=== PATIENT | male | born 1965 | race Caucasian/White ===

== ENCOUNTER 2016-11-18 21:13 | Emergency (ER) | payer BC ==
[2016-11-18] MEDS ORDERED: ALPRAZolam 0.5 MG TAB PO STA (23:15)
--- NOTE | 2016-11-18 23:22 | ED ---
Anxiety HPI - General Chief Complaint: Anxiety Stated Complaint: anxiety Time Seen by Provider: 11/18/16 22:45 Source: patient, RN notes reviewed Mode of arrival: ambulatory - History of Present Illness Initial Comments: 51-year-old male presents to the emergency department with a chief complaint of anxiety attack. Patient has been having a for the last week or so. Patient has been resorting to alcohol to help treat this. Patient is a known alcoholic and he has been sober for a few months now. He just has this full body tightening and he feels very tense and irritated. He states it will body hurts and feels very tense. Patient states alcohol tends to make the symptoms better. Family states they just were concerned so weakened coming and all most of the medication and he just did not know what else to turn. The patient at this time denies any complaints and states it feels much like anxiety. The patient states is not currently having any other symptoms. Patient denies any recent fever, chills, shortness of breath, chest pain, back pain, abdominal pain , nausea vomiting, numbness or tingling, dysuria or hematuria, constipation or diarrhea, headaches or visual changes, or any other current symptoms. - Related Data Home Medications: Home Medications Medication Instructions Recorded Confirmed Aspirin 81 mg PO DAILY 06/24/14 11/18/16 Atenolol [Tenormin] 50 mg PO QAM 06/24/14 11/18/16 Hydrochlorothiazide 25 mg PO DAILY 06/24/14 11/18/16 Multivitamin [Men's Multi-Vitamin] 1 tab PO DAILY 06/24/14 11/18/16 Pravastatin Sodium [Pravachol] 10 mg PO DIRECTED 06/24/14 11/18/16 Ubidecarenone [Co Q-10] 200 mg PO DAILY 06/24/14 11/18/16 Previous Rx's Medication Instructions Recorded ALPRAZolam [Xanax] 0.5 mg PO BID PRN #10 tablet 11/18/16 chlordiazePOXIDE HCl [Librium] 25 mg PO DIRECTED #25 capsule 11/18/16 Allergies/Adverse Reactions: Allergies Allergy/AdvReac Type Severity Reaction Status Date / Time No Known Allergies Allergy Verified 11/18/16 21:27 Review of Systems ROS Statement: Those systems with pertinent positive or pertinent negative responses have been documented in the HPI. ROS Other: All systems not noted in ROS Statement are negative. Past Medical History Past Medical History: Hyperlipidemia, Hypertension History of Any Multi-Drug Resistant Organisms: None Reported Past Surgical History: Orthopedic Surgery Additional Past Surgical History / Comment(s): ACL REPAIR RT KNEE Past Anesthesia/Blood Transfusion Reactions: No Reported Reaction Past Psychological History: Anxiety, Depression Smoking Status: Never smoker Past Alcohol Use History: Daily Past Drug Use History: None Reported General Exam Limitations: no limitations General appearance: alert, in no apparent distress, anxious ENT exam: Present: normal exam, mucous membranes moist Neck exam: Present: normal inspection. Absent: tenderness, meningismus, lymphadenopathy Respiratory exam: Present: normal lung sounds bilaterally. Absent: respiratory distress, wheezes, rales, rhonchi, stridor Cardiovascular Exam: Present: regular rate, normal rhythm, normal heart sounds. Absent: systolic murmur, diastolic murmur, rubs, gallop, clicks Neurological exam: Present: alert, oriented X3 Psychiatric exam: Present: normal affect, normal mood Skin exam: Present: warm, dry, intact, normal color. Absent: rash Course Vital Signs 11/18/16 21:22 Temperature 99.1 F Pulse Rate 83 Respiratory 16 Rate Blood Pressure 145/97 O2 Sat by Pulse 96 Oximetry Medical Decision Making - Medical Decision Making 51-year-old male presents to the emergency department with a chief complaint of anxiety. Patient is also an alcoholic. He long discussion about options. We did give them information about rehab facility. We'll give him Librium to help with withdrawal as well as Xanax help patient with his anxiety. We discussed close follow-up with counselor tomorrow. Parameters. The patient does contract for safety and all questions have been answered. They will be discharged. Disposition Clinical Impression: Acute anxiety, Alcohol abuse Disposition: HOME SELF-CARE Condition: Stable Instructions: Generalized Anxiety Disorder (ED) Additional Instructions: Please use medication as discussed. Please follow up with family doctor if symptoms have not improved over the next two days. Please return to the emergency room if your symptoms increase or worsen or for any other concerns. Prescriptions: chlordiazePOXIDE HCl [Librium] 25 mg PO DIRECTED #25 capsule Referrals: Mónica Nava MD [Primary Care Provider] - 1-2 days Time of Disposition: 23:21
[2016-11-19 00:04] VITALS: BP 149/89; PULSE 82; RESP 18; TEMP 98.2
== END 2016-11-19 00:04 | disposition home or self-care (01) ==
LOC: EC 21:13
DX: F41.9 Anxiety disorder, unspecified (principal); F10.10 Alcohol abuse, uncomplicated; E78.5 Hyperlipidemia, unspecified; I10 Essential (primary) hypertension; Z79.82 Long term (current) use of aspirin; Z79.899 Other long term (current) drug therapy
CPT/HCPCS: 99282

== ENCOUNTER 2022-12-07 09:58 | Day surgery (SDC) | payer BC ==
[2022-12-03 14:46] VITALS: BMI 20.7
[~2022-12-07 09:58] MED LIST: LACTATED RINGERS 1,000 ML IV SCH
[2022-12-07 10:26] VITALS: TEMP 97.4
[2022-12-07] MEDS ORDERED: PROPOFOL 10 MG/ML 20 ML VIAL IV ONE (10:39)
--- NOTE | 2022-12-07 10:42 | P.GSHP ---
History of Present Illness H&P Date: 12/07/22 Chief Complaint: Colon cancer screening 57-year-old here today for colonoscopy. Last colonoscopy 9 years ago. Diverticulosis found at that time. No bowel complaints. No family history of colon cancer. Past Medical History Past Medical History: Hyperlipidemia, Hypertension Additional Past Medical History / Comment(s): colon polyps History of Any Multi-Drug Resistant Organisms: None Reported Past Surgical History: Orthopedic Surgery Additional Past Surgical History / Comment(s): ACL REPAIR RT KNEE colonoscopy Past Anesthesia/Blood Transfusion Reactions: No Reported Reaction Smoking Status: Never smoker Medications and Allergies Home Medications Medication Instructions Recorded Confirmed Type Aspirin 81 mg PO DAILY 06/24/14 12/07/22 History Multivitamin [Men's Multi-Vitamin] 1 tab PO DAILY 06/24/14 12/07/22 History Pravastatin Sodium [Pravachol] 10 mg PO Q48H 06/24/14 12/07/22 History Ubidecarenone [Co Q-10] 200 mg PO DAILY 06/24/14 12/07/22 History Cholecalciferol [Vitamin D3] 5,000 unit PO DAILY 11/18/16 12/07/22 History atenoloL 25 mg PO DAILY 11/18/16 12/07/22 History Loratadine 10 mg PO DAILY 12/03/22 12/07/22 History Allergies Allergy/AdvReac Type Severity Reaction Status Date / Time No Known Allergies Allergy Verified 12/07/22 10:22 Surgical - Exam Vital Signs Temp Pulse Resp BP Pulse Ox 97.4 F L 51 L 18 133/64 99 12/07/22 10:20 12/07/22 10:20 12/07/22 10:20 12/07/22 10:20 12/07/22 10:20 Physical exam: General: Well-developed, well-nourished HEENT: Normocephalic, sclerae nonicteric Abdomen: Nontender, nondistended Extremities: No edema Neuro: Alert and oriented Assessment and Plan (1) Colon cancer screening Narrative/Plan: Will proceed with colonoscopy at this time. Current Visit: Yes Status: Acute Code(s): Z12.11 - ENCOUNTER FOR SCREENING FOR MALIGNANT NEOPLASM OF COLON SNOMED Code(s): 201061150
--- NOTE | 2022-12-07 10:56 | P.PCN ---
Date of Procedure: 12/07/22 Procedure(s) Performed: PREOPERATIVE DIAGNOSIS: Colon cancer screening POSTOPERATIVE DIAGNOSIS: Mild diverticulosis PROCEDURE: Colonoscopy ANESTHESIA: MAC SURGEON: Ramiro Porter M.D. SPECIMENS: None ENDOSCOPIC PROCEDURE: The patient was placed on the endoscopy table in the left decubitus position. The Olympus colonoscope was inserted into the anus and passed under direct visualization to the base of the cecum. The appendiceal orifice was visualized. From that point the scope was slowly withdrawn inspecting all surfaces carefully. There were no neoplastic inflammatory or polypoid lesions throughout the cecum, ascending, transverse, descending, sigmoid and rectum. There was mild left-sided diverticulosis noted. Digital rectal examination was normal. The patient was taken to the recovery room in stable condition per anesthesia guidelines. RECOMMENDATIONS: Resume diet. Repeat colonoscopy 10 years.
[2022-12-07 11:02] VITALS: RESP 16
[2022-12-07 11:29] VITALS: BP 132/79; PULSE 62
== END 2022-12-07 11:51 | disposition home or self-care (01) ==
LOC: ORWHC2ENDO 09:58
PROVIDERS: ATTEND Surgery
DX: Z12.11 Encounter for screening for malignant neoplasm of colon (principal); K57.30 Diverticulosis of large intestine without perforation or abscess without bleeding; I10 Essential (primary) hypertension; E78.5 Hyperlipidemia, unspecified; Z86.010 Personal history of colon polyps; Z79.82 Long term (current) use of aspirin; Z79.899 Other long term (current) drug therapy
CPT/HCPCS: 45378; J2704